=== PATIENT | female | born 1990 | race Caucasian/White ===

== ENCOUNTER 2016-10-01 05:13 | Emergency (ER) ==
[2016-10-01 05:25] VITALS: BP 140/98
[2016-10-01] MEDS ORDERED: TORADOL IM ONE (05:44)
[2016-10-01] MEDS ORDERED: CLINDAMYCIN IM ONE (05:44)
--- NOTE | 2016-10-01 05:50 | PROVIDER DOCUMENTATION ---
HPI-EENT General - General Chief Complaint: Facial Pain Stated Complaint: FASICIAL SWELLING Time Seen by Provider: 10/01/16 05:40 Source: patient Allergies/Adverse Reactions: Patient Allergies Allergy/AdvReac Type Severity Reaction Status Date / Time cefaclor [From [facility]] AdvReac SWELLING Verified 07/21/16 09:11 latex AdvReac RASH Verified 07/21/16 09:11 Home Medications: Home Medication List Medication Instructions Recorded Confirmed Last Taken Type Vit/Fe Fumarate/FA 1 tab PO DAILY 02/05/16 07/21/16 06/13/16 09:00 History [ 1-1 Tablet] Hydrocodone/APAP 5 mg/325 mg 1 each PO Q3-4H PRN PRN #30 tablet 06/16/16 Unknown Rx [[place]-5] Ibuprofen [Motrin] 800 mg PO Q8H PRN PRN #30 tablet 06/16/16 07/21/16 Unknown Rx Norgestimate/Ethinyl Estradiol 1 each PO DAILY #1 packet 06/16/16 07/21/16 Unknown Rx [Sprintec] Acetaminophen with Codeine 1 each PO Q6H PRN PRN #20 tablet 07/21/16 Unknown Rx [Tylenol with Codeine #3 Tablet] Penicillin V Potassium 500 mg PO 4XDAY #40 tablet 07/21/16 Unknown Rx Acetaminophen with Codeine 1 each PO Q6H PRN PRN #18 tablet 10/01/16 Unknown Rx [Tylenol with Codeine #3 Tablet] Clindamycin [Cleocin] 300 mg PO Q6HR #40 capsule 10/01/16 Unknown Rx - History of Present Illness-EENT General NT Location: reports: mouth Quality of Pain: reports: aching Onset/Duration: reports: 24 hours ago Timing: reports: still present, getting worse Prearrival Treatment: Initiated over the counter meds Associated Symptoms: reports: facial pain/swelling, tooth pain. denies: drooling, fever, nasal congestion/drainage, sore throat, voice change Locality of Occurance: Home Similar Symptoms Previously?: Yes Recently seen or treated by another doctor?: No - Eyes Eye Problem Symptoms: denies: eye pain, decrease vision, blurred vision, double vision, curtain, other, burning, itching, sensitivity to light, redness, matting , orbital swelling, eyelid swelling, foreign body sensation - Ears Ear Problem Symptoms: reports: none - Throat/Dental Throat/Dental Problem Symptoms: reports: toothache, jaw pain, swelling of jaw/ face. denies: sore throat, trouble breathing, throat swelling, unable to swallow Throat/Dental Problem Context: reports: dental decay Recently seen a dentist or have an appointment?: No Review of Systems - Adult - REVIEW OF SYSTEMS - ADULT Constitutional: reports: no symptoms reported Eyes: reports: no symptoms reported Ears, Nose, Mouth & Throat: reports: mouth/dental pain, mouth swelling Cardiovascular: reports: no symptoms reported Respiratory: reports: no symptoms reported Gastrointestinal: reports: no symptoms reported Genitourinary: reports: no symptoms reported Musculoskeletal: reports: no symptoms reported Integumentary: reports: no symptoms reported Neurological: reports: no symptoms reported Psychiatric: reports: no symptoms reported Endocrine: reports: no symptoms reported Hematologic/Lymphatic: reports: no symptoms reported Allergic/Immunologic: reports: no symptoms reported All Other Systems: Reviewed and Negative Past History - Adult - PAST MEDICAL HISTORY-ADULT Review of Records: reports: Old Records Reviewed, Nursing Assessment Review, Medications Reviewed, Social history reviewed & non-contributory. Major Childhood Illnesses: reports: denies history Cardiovascular: reports: denies history Respiratory: reports: denies history Gastrointestinal: reports: denies history Obstetrical/Gynecological: reports: - spont/elective (x2) Genitourinary: reports: denies history Musculoskeletal: reports: denies history Neurological: reports: denies history Endocrine/Immune: reports: denies history Other Conditions: reports: denies history - PRIOR SURGERIES/PROCEDURES Surgical/Procedure History: reports: reviewed, not pertinent, cholecystectomy - PRIOR HOSPITALIZATIONS Prior Hospitalizations: reports: none - IMMUNIZATION STATUS Childhood Immunizations: See Nurse Assessment Flu Vaccine: See Nurse Assessment - FAMILY HISTORY Family History: reviewed, not pertinent - SOCIAL HISTORY Smoking: denies Substance Use: none/never Alcohol Use Frequency: occasionally Living Situation: family Physical Exam- EENT - Physical Exam EENT Initial Vital Signs Reviewed: Yes General Appearance: moderate distress Eye Exam: bilateral eye: normal inspection, PERRL, EOMI Ear Exam: bilateral ear: auricle normal, canal normal, TM normal Nasal Exam: normal inspection Throat Exam: pharynx normal, dental tenderness, mandibular swelling Neck: lymphadenopathy (RIGHT) Respiratory: chest non-tender, lungs clear, normal breath sounds Cardiovascular: normal peripheral pulses, regular rate, rhythm, no edema, no gallop Abdominal Exam: normal bowel sounds, non tender, soft, no organomegaly Lymphatic: cervical node tenderness Neurologic: grossly normal Psych/Mental Status: normal mood/affect, normal thought content, normal thought process, oriented x 3 Departure - Departure Time of Disposition Order: 05:48 DIAGNOSIS: Dental abscess Disposition: HOME 01 Certified Medical Emergency: Emergent Condition: Fair Additional Instructions: CALL FREE [facility] IN [place] FOR APPOINTMENT TODAY 2 ALEVE TWICE A DAY Prescriptions: Clindamycin [Cleocin] 300 mg PO Q6HR #40 capsule Acetaminophen with Codeine [Tylenol with Codeine #3 Tablet] 1 each PO Q6H PRN PRN #18 tablet PRN Reason: Pain Referrals: Lynsey Mendez MD [STAFF PHYSICIAN] -
== END 2016-10-01 06:19 | disposition home or self-care (01) ==
LOC: P.ED 05:13
DX: K04.7 Periapical abscess without sinus (principal); R59.1 Generalized enlarged lymph nodes; R22.9 Localized swelling, mass and lump, unspecified; R68.84 Jaw pain; Z79.899 Other long term (current) drug therapy
CPT/HCPCS: 96372; J1885; S0077